=== PATIENT | male | born 1990 | race American Indian/Alaskan Native ===

== ENCOUNTER 2017-05-17 17:04 | Emergency (ER) | payer MEDICAID ==
[2017-05-17 17:04] VITALS: BMI 28.6
[2017-05-17 17:11] VITALS: RESP 18; TEMP 97.6
--- NOTE | 2017-05-17 17:27 | ED PDOC ---
Arrival/HPI - General Chief Complaint: Lower Extremity Problem/Injury Time Seen by Provider: 05/17/17 17:16 Historian: Patient - History of Present Illness Narrative History of Present Illness (Text): 05/17/17 17:23 27 y/o male, no significant pmh, nkda, c/o lt. knee pain s/p jumping for the basketball today. aching pain, aggravated by weight bearing, no calf or heel pain, no numbness or tingling, no palpitation, no rash, no dizziness, no change in vision, no rash, no other medical or psychological complaints. Past Medical History - Provider Review Nursing Documentation Reviewed: Yes - Past History Past History: No Previous - Infectious Disease Hx of Infectious Diseases: None - Tetanus Immunization Tetanus Immunization: Up to Date - Past Medical History Past Medical History: No Previous - Psychiatric Hx Psychophysiologic Disorder: No Hx Anxiety: No Hx Bipolar Disorder: No Hx Depression: No Hx Emotional Abuse: No Hx Hallucinations: No Hx Panic Disorder: No Hx Post Traumatic Stress Disorder: No Hx Psychosis: No Hx Physical Abuse: No Hx Schizophrenia: No Hx Sexual Abuse: No Hx Substance Use: Yes (marijuana) - Past Surgical History Past Surgical History: No Previous - Anesthesia Hx Anesthesia: No Hx Anesthesia Reactions: No Hx Malignant Hyperthermia: No - Suicidal Assessment Feels Threatened In Home Enviroment: No Family/Social History - Physician Review Nursing Documentation Reviewed: Yes Family/Social History: Unknown Family HX Smoking Status: Never Smoked Hx Alcohol Use: Yes Hx Substance Use: Yes (marijuana) Hx Substance Use Treatment: No Allergies/Home Meds Allergies/Adverse Reactions: Allergies No Known Allergies Allergy (Verified 05/27/15 12:27) Review of Systems - Review of Systems Constitutional: absent: Fatigue, Fevers Eyes: absent: Vision Changes ENT: absent: Hearing Changes Respiratory: absent: SOB, Cough Cardiovascular: absent: Chest Pain Gastrointestinal: absent: Abdominal Pain, Diarrhea, Nausea, Vomiting Musculoskeletal: Arthralgias, Joint Swelling. absent: Back Pain, Neck Pain, Myalgias Skin: absent: Rash, Pruritis, Skin Lesions Neurological: absent: Headache, Dizziness Psychiatric: absent: Anxiety, Depression, Suicidal Ideation Physical Exam Vital Signs Reviewed: Yes Vital Signs Temp Pulse Resp BP Pulse Ox 05/17/17 18:47 94 H 18 133/74 98 05/17/17 17:08 97.6 F 100 H 18 135/81 99 Temperature: Afebrile Blood Pressure: Normal Pulse: Regular Respiratory Rate: Normal Appearance: Positive for: Well-Appearing, Non-Toxic, Comfortable Pain Distress: Moderate Mental Status: Positive for: Alert and Oriented X 3 - Systems Exam Head: Present: Atraumatic, Normocephalic Pupils: Present: PERRL Extroacular Muscles: Present: EOMI Conjunctiva: Present: Normal Neck: Present: Normal Range of Motion Respiratory/Chest: Present: Clear to Auscultation, Good Air Exchange. No: Respiratory Distress, Accessory Muscle Use Cardiovascular: Present: Regular Rate and Rhythm, Normal S1, S2. No: Murmurs Abdomen: Present: Normal Bowel Sounds. No: Tenderness, Distention, Peritoneal Signs Back: Present: Normal Inspection Upper Extremity: Present: Normal Inspection. No: Cyanosis, Edema Lower Extremity: Present: Normal Inspection, Other (Lt. knee: +ttp on the medial aspect, +apley grind test, negative barry and medrano signs, FROM without limitation, sensation intact, motor 5/5, +DPPT pulses, capillary refill < 2 seconds, neurovascular intact. ). No: Edema Neurological: Present: GCS=15, CN II-XII Intact, Speech Normal Skin: Present: Warm, Dry, Normal Color. No: Rashes Psychiatric: Present: Alert, Oriented x 3, Normal Insight, Normal Concentration Medical Decision Making ED Course and Treatment: 05/17/17 17:26 -Lt. knee xray -motrin 05/17/17 18:36 -xray show no fracture or dislocation -Pain decreased, will discharge home. -morgan wrap/knee immobilizer with neurovascular intact -Crutches -I explained to the patient that there is likely chance of ligamentous/meniscus injury to the lt. knee which he shoulder definitely follow up with the orthopedic. -Discharge home with naproxen, morgan wrap, crutches, knee immobilizer, outpatient follow up with the orthopedic for possible MRI of the left knee within 2-4 days , return to the ER for any new or worsening signs or symptoms. - RAD Interpretation Radiology Orders: 05/17/17 17:21 KNEE WITH PATELLA LEFT 3 VIEW [RAD] Stat no acute fracture or dislocation Arts Administrator: Radiologist - Medication Orders Current Medication Orders: Discontinued Medications Ibuprofen (Motrin Tab) 600 mg PO STAT STA Stop: 05/17/17 17:22 Last Admin: 02/20/18 18:02 Dose: 600 mg MAR Pain/Vitals Document 05/17/17 18:02 OCS (Rec: 05/17/17 18:04 OCS [id number]) Pain Reassessment Is This A Pain ReAssessment? Yes Sleep Is patient sleeping during reassessment? 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 Disposition/Present on Arrival - Present on Arrival Any Indicators Present on Arrival: No History of DVT/PE: No History of Uncontrolled Diabetes: No Urinary Catheter: No History of Decub. Ulcer: No History Surgical Site Infection Following: None - Disposition Have Diagnosis and Disposition been Completed?: Yes Diagnosis: Knee injury, Knee pain Disposition: HOME/ ROUTINE Disposition Time: 17:27 Patient Plan: Discharge Condition: GOOD Discharge Instructions (ExitCare): Joint Pain Additional Instructions: -Discharge home with naproxen, morgan wrap, crutches, knee immobilizer, outpatient follow up with the orthopedic for possible MRI of the left knee within 2-4 days , return to the ER for any new or worsening signs or symptoms. Prescriptions: Naproxen 500 mg PO BID PRN #20 tablet PRN Reason: Other Referrals: Bob Goldstein, [Non-Staff] - Follow up with primary [facility] [place] - Follow up with primary Bro Gastelum DO [Staff Provider] - Follow up with primary Forms: [employer] ([employer]), WORK NOTE
[2017-05-17 18:47] VITALS: BP 133/74; PULSE 94; O2SAT 98
--- NOTE | 2017-05-18 08:49 | RAD ---
PROCEDURE: Left Knee Radiographs. HISTORY: Pain. Status post jumping COMPARISON: None. FINDINGS: BONES: Normal. No fracture. JOINTS: Normal. No osteoarthritis. JOINT EFFUSION: None. OTHER FINDINGS: None. IMPRESSION: No radiographic evidence of acute fracture or dislocation.
== END 2017-05-17 18:56 | disposition home or self-care (01) ==
LOC: ED 17:04
DX: M25.562 Pain in left knee (principal); S89.92XA Unspecified injury of left lower leg, initial encounter; X58.XXXA Exposure to other specified factors, initial encounter; Y93.67 Activity, basketball

== ENCOUNTER 2018-06-06 11:05 | Emergency (ER) | payer MEDICAID, OTHER ==
[2018-06-06 11:05] VITALS: BMI 28.6
[2018-06-06 11:21] VITALS: BP 136/82; PULSE 68; RESP 16; TEMP 98.3; O2SAT 98
--- NOTE | 2018-06-06 12:24 | ED PDOC ---
Arrival/HPI - General Chief Complaint: Lower Extremity Problem/Injury Time Seen by Provider: 06/06/18 11:19 Historian: Patient - History of Present Illness Narrative History of Present Illness (Text): 06/06/18 12:00 28 y/o male with PMH of chronic left knee pain presents to ED c/o left knee pain x 1 year. Pt seen here approx. 1 year ago for left knee pain, and states he was told he tore his meniscus and thought it would heal on its own. Pt never followed up with orthopedics or his PMD but states the knee has been causing him intermittent discomfort and making a "cracking" sound when walking and bending. Pt is requesting an xray and orthopedic referral. Denies fever, chills, skin redness, warmth, calf swelling, calf pain, bruising, weakness, numbness, paresthesias, SOB, or any other associated symptoms. Past Medical History - Provider Review Nursing Documentation Reviewed: Yes - Past History Past History: No Previous - Infectious Disease Hx of Infectious Diseases: None - Tetanus Immunization Tetanus Immunization: Up to Date - Past Medical History Past Medical History: No Previous - Cardiac Hx Cardiac Disorders: No - Pulmonary Hx Respiratory Disorders: No - Neurological Hx Neurological Disorder: No - HEENT Hx HEENT Disorder: No - Renal Hx Renal Disorder: No - Endocrine/Metabolic Hx Endocrine Disorders: No - Hematological/Oncological Hx Blood Disorders: No - Integumentary Hx Dermatological Disorder: Yes - Musculoskeletal/Rheumatological Hx Musculoskeletal Disorders: Yes Other/Comment: L KNEE PAIN - Gastrointestinal Hx Gastrointestinal Disorders: Yes Hx Hemorrhoids: Yes - Genitourinary/Gynecological Hx Genitourinary Disorders: Yes - Psychiatric Hx Psychophysiologic Disorder: No Hx Substance Use: Yes (marijuana) - Past Surgical History Past Surgical History: No Previous - Anesthesia Hx Anesthesia: No Hx Anesthesia Reactions: No Hx Malignant Hyperthermia: No - Suicidal Assessment Feels Threatened In Home Enviroment: No Family/Social History - Physician Review Nursing Documentation Reviewed: Yes Family/Social History: No Known Family HX Smoking Status: Never Smoked Hx Alcohol Use: Yes Hx Substance Use: Yes (marijuana) Hx Substance Use Treatment: No Allergies/Home Meds Allergies/Adverse Reactions: Allergies No Known Allergies Allergy (Verified 06/06/18 11:14) Review of Systems - Review of Systems Constitutional: Normal. absent: Fatigue, Fevers Eyes: Normal. absent: Vision Changes ENT: Normal. absent: Sore Throat, Sinus Congestion Respiratory: Normal. absent: SOB, Cough Cardiovascular: Normal. absent: Chest Pain, Palpitations, Syncope Gastrointestinal: Normal. absent: Abdominal Pain, Nausea, Vomiting Genitourinary Male: Normal. absent: Dysuria, Frequency Musculoskeletal: Arthralgias (left knee). absent: Back Pain Skin: Normal. absent: Rash, Cellulitis Neurological: Normal. absent: Headache, Dizziness Endocrine: Normal Hemo/Lymphatic: Normal Psychiatric: Normal Physical Exam Vital Signs Reviewed: Yes Vital Signs Temp Pulse Resp BP Pulse Ox 06/06/18 11:15 98.3 F 68 16 136/82 98 Temperature: Afebrile Blood Pressure: Normal Pulse: Regular Respiratory Rate: Normal Appearance: Positive for: Well-Appearing, Non-Toxic, Comfortable Pain Distress: None Mental Status: Positive for: Alert and Oriented X 3 - Systems Exam Head: Present: Atraumatic, Normocephalic Pupils: Present: PERRL Extroacular Muscles: Present: EOMI Conjunctiva: Present: Normal Mouth: Present: Moist Mucous Membranes Neck: Present: Normal Range of Motion Respiratory/Chest: Present: Clear to Auscultation, Good Air Exchange. No: Respiratory Distress, Accessory Muscle Use Cardiovascular: Present: Regular Rate and Rhythm, Normal S1, S2, Peripheal Pulses Present Upper Extremity: Present: Normal Inspection, Normal ROM, NORMAL PULSES, Neurovascularly Intact, Capillary Refill < 2s. No: Cyanosis, Edema, Temperature Abnormalties Lower Extremity: Present: Normal Inspection, NORMAL PULSES, Normal ROM, Tenderness (mild to left knee lateral joint line), Neurovascularly Intact, Capillary Refill < 2 s, Other ((+) crepitus left knee). No: Edema, CALF TENDERNESS, Swelling, Deformity, Temperature Abnormalties Neurological: Present: GCS=15, CN II-XII Intact, Speech Normal, Motor Func Grossly Intact, Normal Sensory Function, Gait Normal Skin: Present: Warm, Dry, Normal Color. No: Rashes Psychiatric: Present: Alert, Oriented x 3, Normal Insight, Normal Concentration, Normal Affect, Normal Mood Medical Decision Making ED Course and Treatment: 06/06/18 11:58 Initial Plan: * Left Knee Xray Patient refusing pain medication at this time. Xray significant for lateral osteoarthrosis. Advised PMD and orthopedic f ollowup. Given pain medication prescription. Diagnostic testing results and plan of care discussed with patient. Strict instructions given regarding prescription use, importance of followup, and sign s/symptoms to return to ER including worsening pain, numbness, weakness, paresthesias, or any other new/worsening symptoms. Pt verbalized understanding of discussion. Patient is A&Ox3, ambulating with steady gait, with vital signs stable for discharge. - RAD Interpretation Narrative RAD Interpretations (Text): Left Knee XR: FINDINGS: BONES: Bone alignment and mineralization are normal. There is no acute displaced fracture or bone destruction. JOINTS: Mild degenerative osteoarthrosis in the lateral compartment with reduced joint space and marginal spurring in the lateral femoral condyle. The medial compartment joint space is preserved. JOINT EFFUSION: Small suprapatellar joint effusion. OTHER FINDINGS: None. 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 Small suprapatellar joint effusion. No acute fracture or dislocation. Radiology Orders: 06/06/18 11:22 KNEE LEFT 2 VIEWS (AP & LAT) [RAD] Stat Disposition/Present on Arrival - Present on Arrival Any Indicators Present on Arrival: No History of DVT/PE: No History of Uncontrolled Diabetes: No Urinary Catheter: No History of Decub. Ulcer: No History Surgical Site Infection Following: None - Disposition Have Diagnosis and Disposition been Completed?: Yes Diagnosis: Osteoarthrosis Disposition: HOME/ ROUTINE Disposition Time: 13:31 Patient Plan: Discharge Condition: STABLE Discharge Instructions (ExitCare): Meniscal Tear, Knee Pain (DC) Additional Instructions: Ibuprofen as needed for pain Followup with orthopedics within 2 days for outpatient MRI Followup with clinic or primary doctor within 2 days Return to ER with any new/worsening symptoms Prescriptions: Ibuprofen [Motrin Tab] 600 mg PO Q8 PRN #30 tab PRN Reason: Pain, Moderate (4-7) Referrals: [facility] [place] - Follow up with primary Jason Bhagat MD [Staff Provider] - Follow up with primary Merary Enamorado MD [Medical Doctor] - Follow up with primary Forms: [email or web address] ([place]), WORK NOTE
--- NOTE | 2018-06-06 13:34 | RAD ---
Date of service: 06/06/2018 PROCEDURE: Left Knee Radiographs. HISTORY: Pain. COMPARISON: None. FINDINGS: BONES: Bone alignment and mineralization are normal. There is no acute displaced fracture or bone destruction. JOINTS: Mild degenerative osteoarthrosis in the lateral compartment with reduced joint space and marginal spurring in the lateral femoral condyle. The medial compartment joint space is preserved. JOINT EFFUSION: Small suprapatellar joint effusion. OTHER FINDINGS: None. 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 Small suprapatellar joint effusion. No acute fracture or dislocation.
== END 2018-06-06 13:42 | disposition home or self-care (01) ==
LOC: ED 11:05
DX: M17.12 Unilateral primary osteoarthritis, left knee (principal)